=== PATIENT | male | born 1970 | race Caucasian/White ===

== ENCOUNTER 2020-03-14 18:36 | Inpatient (IN) | payer OTHER ==
[2020-03-14] MEDS ORDERED: MAGNESIUM CITRATE 300 ML BOTTLE PO PRN (21:07)
[2020-03-14] MEDS ORDERED: ACETAMINOPHEN 325 MG TABLET (FP) PO PRN (21:07)
[2020-03-14] MEDS ORDERED: IBUPROFEN 400 MG TABLET (FP) PO PRN (21:07)
[2020-03-14] MEDS ORDERED: P-EPHED 60MG/TRIPROLIDI 2.5MG TABLET PO PRN (21:07)
[2020-03-14] MEDS ORDERED: NICOTINE POLACRILEX 2 MG GUM BC PRN (21:07)
[2020-03-14] MEDS ORDERED: LOPERAMIDE HCL 2 MG CAPSULE PO PRN (21:07)
[2020-03-14] MEDS ORDERED: guaiFENesin 200 MG/10 ML 10 ML UNIT-DOSE CUPS PO PRN (21:07)
[2020-03-14] MEDS ORDERED: MAGNESIUM HYDROX 2400MG/30ML ORAL SUSPENSION 30 ML CUP PO PRN (21:07)
[2020-03-14 21:46] VITALS: BMI 19.8
[2020-03-14] MEDS ORDERED: MELATONIN 5 MG TABLETS PO SCH (22:00)
[2020-03-14] MEDS ORDERED: TUBERCULIN PPD 5 TU/0.1ML VIAL ID ONE ×2 (22:09→22:31)
[2020-03-14] MEDS: MELATONIN 5 MG TABLETS PO SCH (22:16)
[2020-03-14] MEDS: THIAMINE HCL 100 MG TABLET (FP) PO SCH (22:16)
[2020-03-15] MEDS: NICOTINE 14 MG/24 HOURS TOPICAL PATCH TD SCH (09:46)
[2020-03-15] MEDS: PRENATAL VITAMINS W/ FOLIC ACID TABLET (FP) PO SCH (09:46)
[2020-03-15] MEDS: hydrOXYzine PAMOATE 25 MG CAPSULE (FP) PO PRN ×2 (09:52→21:22)
[2020-03-15] MEDS: cloNIDine HCL 0.1 MG TABLET PO PRN (09:52)
[2020-03-15] MEDS: IBUPROFEN 400 MG TABLET (FP) PO PRN (09:54)
[2020-03-15 13:31] LABS: POTASSIUM 4.1 mmol/L (3.5-5.1)
[2020-03-15 13:32] LABS: CALCIUM 8.7 mg/dL (8.5-10.1)
[2020-03-15 13:33] LABS: ALBUMIN 3.7 g/dl (3.4-5.0); BLOOD UREA NITROGEN 22.1 mg/dL (7-18); HEMATOCRIT 42.8 % (35.4-49); HEMOGLOBIN 14.4 GM/dL (11.7-16.9); MCH 30.8 pg (25.7-33.7); MCHC 33.6 g/dl (32.0-35.9); MEAN CELL VOLUME 91.7 fl (80-96); PLATELET COUNT 338 K/MM3 (134-434); RBC 4.67 M/mm3 (4.00-5.60); RDW 14.2 % (11.9-15.9); WHITE BLOOD COUNT 9.7 K/mm3 (4.0-10.0)
[2020-03-15 13:37] LABS: BILIRUBIN,TOTAL 0.6 mg/dL (0.2-1)
[2020-03-15 13:38] LABS: TOT PROT 6.4 g/dl (6.4-8.2)
[2020-03-15] MEDS: MELATONIN 5 MG TABLETS PO SCH (21:22)
[2020-03-15] MEDS: THIAMINE HCL 100 MG TABLET (FP) PO SCH (21:22)
[2020-03-15] MEDS: CYCLOBENZAPRINE HCL 10 MG TABLET (FP) PO PRN (21:23)
[2020-03-16] MEDS: PRENATAL VITAMINS W/ FOLIC ACID TABLET (FP) PO SCH (09:35)
[2020-03-16] MEDS: NICOTINE 14 MG/24 HOURS TOPICAL PATCH TD SCH (09:35)
[2020-03-16] MEDS: hydrOXYzine PAMOATE 25 MG CAPSULE (FP) PO PRN ×2 (09:36→21:32)
[2020-03-16] MEDS: IBUPROFEN 400 MG TABLET (FP) PO PRN (09:36)
[2020-03-16 18:36] LABS: PH,URINE 5.5 (5.0-8.0); URINE APPEARANCE CLEAR; URINE BILIRUBIN NEGATIVE (NEGATIVE); URINE COLOR YELLOW; URINE GLUCOSE (UA) NEGATIVE (NEGATIVE); URINE KETONE TRACE (NEGATIVE); URINE LEUK ESTERASE NEGATIVE (NEGATIVE); URINE NITRITE NEGATIVE (NEGATIVE); URINE PROTEIN NEGATIVE (NEGATIVE); URINE UROBILINOGEN 0.2 mg/dL (0.2-1.0)
[2020-03-16] MEDS: cloNIDine HCL 0.1 MG TABLET PO PRN (21:32)
[2020-03-16] MEDS: THIAMINE HCL 100 MG TABLET (FP) PO SCH (21:32)
[2020-03-16] MEDS: MELATONIN 5 MG TABLETS PO SCH (21:32)
[2020-03-16] MEDS: CYCLOBENZAPRINE HCL 10 MG TABLET (FP) PO PRN (21:33)
[2020-03-17] MEDS: hydrOXYzine PAMOATE 25 MG CAPSULE (FP) PO PRN (09:42)
[2020-03-17] MEDS: NICOTINE 14 MG/24 HOURS TOPICAL PATCH TD SCH (09:42)
[2020-03-17] MEDS: PRENATAL VITAMINS W/ FOLIC ACID TABLET (FP) PO SCH (09:42)
[2020-03-17] MEDS: CYCLOBENZAPRINE HCL 10 MG TABLET (FP) PO PRN (09:43)
[2020-03-17] MEDS ORDERED: diphenhydrAMINE HCL 25 MG CAPSULE (FP) PO ONE (21:16)
[2020-03-17] MEDS: THIAMINE HCL 100 MG TABLET (FP) PO SCH (21:23)
[2020-03-17] MEDS: IBUPROFEN 400 MG TABLET (FP) PO PRN (21:23)
[2020-03-17] MEDS: cloNIDine HCL 0.1 MG TABLET PO PRN (21:23)
[2020-03-17] MEDS: SULFAMETHOXAZOLE/TRIMETHOPRIM 800MG/160MG D.S. TABLET PO SCH (21:24)
[2020-03-17] MEDS: MELATONIN 5 MG TABLETS PO SCH (21:24)
[2020-03-17] MEDS: HYDROCORTISONE 0.5% TOPICAL CREAM 30 GM TUBE TP PRN (22:34)
[2020-03-18] MEDS: NICOTINE 14 MG/24 HOURS TOPICAL PATCH TD SCH (09:38)
[2020-03-18] MEDS: SULFAMETHOXAZOLE/TRIMETHOPRIM 800MG/160MG D.S. TABLET PO SCH ×2 (09:38→21:20)
[2020-03-18] MEDS: PRENATAL VITAMINS W/ FOLIC ACID TABLET (FP) PO SCH (09:38)
[2020-03-18] MEDS: hydrOXYzine PAMOATE 25 MG CAPSULE (FP) PO PRN (09:39)
[2020-03-18] MEDS: ARIPiprazole 2 MG TABLET PO SCH (10:30)
[2020-03-18] MEDS: THIAMINE HCL 100 MG TABLET (FP) PO SCH (21:20)
[2020-03-18] MEDS: MELATONIN 5 MG TABLETS PO SCH (21:20)
[2020-03-18] MEDS: MIRTAZAPINE 15 MG TABLET (FP) PO SCH (21:22)
[2020-03-19] MEDS: ARIPiprazole 2 MG TABLET PO SCH (09:46)
[2020-03-19] MEDS: NICOTINE 14 MG/24 HOURS TOPICAL PATCH TD SCH (09:46)
[2020-03-19] MEDS: SULFAMETHOXAZOLE/TRIMETHOPRIM 800MG/160MG D.S. TABLET PO SCH ×2 (09:46→21:26)
[2020-03-19] MEDS: PRENATAL VITAMINS W/ FOLIC ACID TABLET (FP) PO SCH (09:47)
[2020-03-19] MEDS: MAG HYDROX/AL HYDROX/SIMETH 30 ML UNIT-DOSE CUP PO PRN (19:00)
[2020-03-19] MEDS: CYCLOBENZAPRINE HCL 10 MG TABLET (FP) PO PRN (21:25)
[2020-03-19] MEDS: THIAMINE HCL 100 MG TABLET (FP) PO SCH (21:25)
[2020-03-19] MEDS: MIRTAZAPINE 15 MG TABLET (FP) PO SCH (21:25)
[2020-03-19] MEDS: hydrOXYzine PAMOATE 25 MG CAPSULE (FP) PO PRN (21:25)
[2020-03-19] MEDS: ACETAMINOPHEN 325 MG TABLET (FP) PO PRN (21:26)
[2020-03-19] MEDS: MELATONIN 5 MG TABLETS PO SCH (21:26)
[2020-03-20] MEDS: NICOTINE 14 MG/24 HOURS TOPICAL PATCH TD SCH (09:50)
[2020-03-20] MEDS: PRENATAL VITAMINS W/ FOLIC ACID TABLET (FP) PO SCH (09:50)
[2020-03-20] MEDS: SULFAMETHOXAZOLE/TRIMETHOPRIM 800MG/160MG D.S. TABLET PO SCH ×2 (09:50→21:33)
[2020-03-20] MEDS: ARIPiprazole 2 MG TABLET PO SCH (09:50)
[2020-03-20] MEDS: HYDROCORTISONE 0.5% TOPICAL CREAM 30 GM TUBE TP PRN (09:51)
[2020-03-20] MEDS ORDERED: METHOCARBAMOL 500 MG TABLET PO PRN (12:08)
[2020-03-20] MEDS ORDERED: ONDANSETRON *ODT* 4 MG TABLET SL PRN (12:09)
[2020-03-20] MEDS ORDERED: MASKS NR ONE (17:00)
[2020-03-20] MEDS: MIRTAZAPINE 15 MG TABLET (FP) PO SCH (21:33)
[2020-03-20] MEDS: CYCLOBENZAPRINE HCL 10 MG TABLET (FP) PO PRN (21:33)
[2020-03-20] MEDS: hydrOXYzine PAMOATE 25 MG CAPSULE (FP) PO PRN (21:33)
[2020-03-20] MEDS: IBUPROFEN 400 MG TABLET (FP) PO PRN (21:33)
[2020-03-20] MEDS: THIAMINE HCL 100 MG TABLET (FP) PO SCH (21:33)
[2020-03-20] MEDS: MELATONIN 5 MG TABLETS PO SCH (21:33)
[2020-03-21] MEDS: SULFAMETHOXAZOLE/TRIMETHOPRIM 800MG/160MG D.S. TABLET PO SCH ×2 (09:51→21:11)
[2020-03-21] MEDS: ARIPiprazole 2 MG TABLET PO SCH (09:51)
[2020-03-21] MEDS: NICOTINE 14 MG/24 HOURS TOPICAL PATCH TD SCH (09:52)
[2020-03-21] MEDS: HYDROCORTISONE 0.5% TOPICAL CREAM 30 GM TUBE TP PRN (09:52)
[2020-03-21] MEDS: PRENATAL VITAMINS W/ FOLIC ACID TABLET (FP) PO SCH (09:52)
[2020-03-21] MEDS: hydrOXYzine PAMOATE 25 MG CAPSULE (FP) PO PRN (21:11)
[2020-03-21] MEDS: MIRTAZAPINE 15 MG TABLET (FP) PO SCH (21:11)
[2020-03-21] MEDS: CYCLOBENZAPRINE HCL 10 MG TABLET (FP) PO PRN (21:11)
[2020-03-21] MEDS: THIAMINE HCL 100 MG TABLET (FP) PO SCH (21:11)
[2020-03-21] MEDS: MELATONIN 5 MG TABLETS PO SCH (21:11)
[2020-03-22] MEDS: PRENATAL VITAMINS W/ FOLIC ACID TABLET (FP) PO SCH (09:35)
[2020-03-22] MEDS: SULFAMETHOXAZOLE/TRIMETHOPRIM 800MG/160MG D.S. TABLET PO SCH ×2 (09:35→21:13)
[2020-03-22] MEDS: ARIPiprazole 2 MG TABLET PO SCH (09:36)
[2020-03-22] MEDS: NICOTINE 14 MG/24 HOURS TOPICAL PATCH TD SCH (09:36)
[2020-03-22] MEDS: MIRTAZAPINE 15 MG TABLET (FP) PO SCH (21:13)
[2020-03-22] MEDS: THIAMINE HCL 100 MG TABLET (FP) PO SCH (21:13)
[2020-03-22] MEDS: MELATONIN 5 MG TABLETS PO SCH (21:14)
[2020-03-23] MEDS: ARIPiprazole 2 MG TABLET PO SCH (09:47)
[2020-03-23] MEDS: SULFAMETHOXAZOLE/TRIMETHOPRIM 800MG/160MG D.S. TABLET PO SCH ×2 (09:47→22:12)
[2020-03-23] MEDS: PRENATAL VITAMINS W/ FOLIC ACID TABLET (FP) PO SCH (09:47)
[2020-03-23] MEDS: NICOTINE 14 MG/24 HOURS TOPICAL PATCH TD SCH (09:47)
[2020-03-23] MEDS: MIRTAZAPINE 15 MG TABLET (FP) PO SCH (22:12)
[2020-03-23] MEDS: THIAMINE HCL 100 MG TABLET (FP) PO SCH (22:12)
[2020-03-23] MEDS: MELATONIN 5 MG TABLETS PO SCH (22:12)
[2020-03-24] MEDS: ARIPiprazole 2 MG TABLET PO SCH (09:39)
[2020-03-24] MEDS: NICOTINE 14 MG/24 HOURS TOPICAL PATCH TD SCH (09:39)
[2020-03-24] MEDS: PRENATAL VITAMINS W/ FOLIC ACID TABLET (FP) PO SCH (09:39)
[2020-03-24] MEDS: SULFAMETHOXAZOLE/TRIMETHOPRIM 800MG/160MG D.S. TABLET PO SCH (09:39)
[2020-03-24] MEDS: MIRTAZAPINE 15 MG TABLET (FP) PO SCH (21:13)
[2020-03-24] MEDS: THIAMINE HCL 100 MG TABLET (FP) PO SCH (21:13)
[2020-03-24] MEDS: MELATONIN 5 MG TABLETS PO SCH (21:13)
[2020-03-24] MEDS: MAG HYDROX/AL HYDROX/SIMETH 30 ML UNIT-DOSE CUP PO PRN (21:15)
[2020-03-25] MEDS: PRENATAL VITAMINS W/ FOLIC ACID TABLET (FP) PO SCH (09:43)
[2020-03-25] MEDS: NICOTINE 14 MG/24 HOURS TOPICAL PATCH TD SCH (09:43)
[2020-03-25] MEDS: ARIPiprazole 2 MG TABLET PO SCH (09:43)
[2020-03-25] MEDS: PANTOPRAZOLE 40 MG TABLET PO SCH (12:30)
[2020-03-25] MEDS: hydrOXYzine PAMOATE 25 MG CAPSULE (FP) PO PRN (21:43)
[2020-03-25] MEDS: CYCLOBENZAPRINE HCL 10 MG TABLET (FP) PO PRN (21:43)
[2020-03-25] MEDS: THIAMINE HCL 100 MG TABLET (FP) PO SCH (21:43)
[2020-03-25] MEDS: MIRTAZAPINE 15 MG TABLET (FP) PO SCH (21:44)
[2020-03-25] MEDS: MELATONIN 5 MG TABLETS PO SCH (21:44)
[2020-03-26] MEDS: PANTOPRAZOLE 40 MG TABLET PO SCH (09:24)
[2020-03-26] MEDS: PRENATAL VITAMINS W/ FOLIC ACID TABLET (FP) PO SCH (09:24)
[2020-03-26] MEDS: NICOTINE 14 MG/24 HOURS TOPICAL PATCH TD SCH (09:25)
[2020-03-26] MEDS: ARIPiprazole 2 MG TABLET PO SCH (09:25)
[2020-03-26] MEDS: THIAMINE HCL 100 MG TABLET (FP) PO SCH (21:11)
[2020-03-26] MEDS: MIRTAZAPINE 15 MG TABLET (FP) PO SCH (21:11)
[2020-03-26] MEDS: MELATONIN 5 MG TABLETS PO SCH (21:11)
[2020-03-26] MEDS: hydrOXYzine PAMOATE 25 MG CAPSULE (FP) PO PRN (21:11)
[2020-03-26] MEDS: CYCLOBENZAPRINE HCL 10 MG TABLET (FP) PO PRN (21:12)
[2020-03-27] MEDS: PRENATAL VITAMINS W/ FOLIC ACID TABLET (FP) PO SCH (09:37)
[2020-03-27] MEDS: PANTOPRAZOLE 40 MG TABLET PO SCH (09:37)
[2020-03-27] MEDS: NICOTINE 14 MG/24 HOURS TOPICAL PATCH TD SCH (09:37)
[2020-03-27] MEDS: ARIPiprazole 2 MG TABLET PO SCH (09:37)
[2020-03-27] MEDS: MIRTAZAPINE 15 MG TABLET (FP) PO SCH (21:38)
[2020-03-27] MEDS: MELATONIN 5 MG TABLETS PO SCH (21:38)
[2020-03-27] MEDS: hydrOXYzine PAMOATE 25 MG CAPSULE (FP) PO PRN (21:38)
[2020-03-27] MEDS: THIAMINE HCL 100 MG TABLET (FP) PO SCH (21:38)
[2020-03-27] MEDS: CYCLOBENZAPRINE HCL 10 MG TABLET (FP) PO PRN (21:38)
[2020-03-28] MEDS: MAG HYDROX/AL HYDROX/SIMETH 30 ML UNIT-DOSE CUP PO PRN (08:49)
[2020-03-28] MEDS: PANTOPRAZOLE 40 MG TABLET PO SCH (09:51)
[2020-03-28] MEDS: PRENATAL VITAMINS W/ FOLIC ACID TABLET (FP) PO SCH (09:51)
[2020-03-28] MEDS: ARIPiprazole 2 MG TABLET PO SCH (09:51)
[2020-03-28] MEDS: NICOTINE 14 MG/24 HOURS TOPICAL PATCH TD SCH (09:52)
[2020-03-28] MEDS: THIAMINE HCL 100 MG TABLET (FP) PO SCH (21:07)
[2020-03-28] MEDS: MELATONIN 5 MG TABLETS PO SCH (21:07)
[2020-03-28] MEDS: MIRTAZAPINE 15 MG TABLET (FP) PO SCH (21:08)
[2020-03-29] MEDS: PRENATAL VITAMINS W/ FOLIC ACID TABLET (FP) PO SCH (09:14)
[2020-03-29] MEDS: PANTOPRAZOLE 40 MG TABLET PO SCH (09:15)
[2020-03-29] MEDS: NICOTINE 14 MG/24 HOURS TOPICAL PATCH TD SCH (09:15)
[2020-03-29] MEDS: ACETAMINOPHEN 325 MG TABLET (FP) PO PRN (09:15)
[2020-03-29] MEDS: ARIPiprazole 2 MG TABLET PO SCH (09:15)
[2020-03-29] MEDS: MIRTAZAPINE 15 MG TABLET (FP) PO SCH (21:50)
[2020-03-29] MEDS: MELATONIN 5 MG TABLETS PO SCH (21:50)
[2020-03-29] MEDS: CYCLOBENZAPRINE HCL 10 MG TABLET (FP) PO PRN (21:50)
[2020-03-29] MEDS: THIAMINE HCL 100 MG TABLET (FP) PO SCH (21:50)
[2020-03-29] MEDS: hydrOXYzine PAMOATE 25 MG CAPSULE (FP) PO PRN (21:50)
[2020-03-30] MEDS: PRENATAL VITAMINS W/ FOLIC ACID TABLET (FP) PO SCH (09:14)
[2020-03-30] MEDS: ARIPiprazole 2 MG TABLET PO SCH (09:14)
[2020-03-30] MEDS: hydrOXYzine PAMOATE 25 MG CAPSULE (FP) PO PRN ×2 (09:15→21:56)
[2020-03-30] MEDS: PANTOPRAZOLE 40 MG TABLET PO SCH (09:15)
[2020-03-30] MEDS: NICOTINE 14 MG/24 HOURS TOPICAL PATCH TD SCH (09:16)
[2020-03-30] MEDS ORDERED: MASKS NR ONE (17:41)
[2020-03-30] MEDS: MELATONIN 5 MG TABLETS PO SCH (21:55)
[2020-03-30] MEDS: THIAMINE HCL 100 MG TABLET (FP) PO SCH (21:56)
[2020-03-30] MEDS: MIRTAZAPINE 15 MG TABLET (FP) PO SCH (21:56)
[2020-03-31 06:51] VITALS: BP 108/72; PULSE 76; TEMP 98
== END 2020-03-31 09:00 | disposition other institution (70) | DRG 772 ==
LOC: YASAS 18:36 → Y5N 21:38
PROVIDERS: ADMIT Allergy & Immunology; ATTEND Allergy & Immunology
PROC: HZ42ZZZ Group Counseling for Substance Abuse Treatment, Cognitive-Behavioral (ICD-10-PCS; principal; 2020-03-14)
DX: F11.20 Opioid dependence, uncomplicated (principal); F10.20 Alcohol dependence, uncomplicated; F14.20 Cocaine dependence, uncomplicated; F17.210 Nicotine dependence, cigarettes, uncomplicated; F19.282 Other psychoactive substance dependence with psychoactive substance-induced sleep disorder; F19.24 Other psychoactive substance dependence with psychoactive substance-induced mood disorder; F31.9 Bipolar disorder, unspecified; F43.10 Post-traumatic stress disorder, unspecified; F90.9 Attention-deficit hyperactivity disorder, unspecified type; K21.9 Gastro-esophageal reflux disease without esophagitis; L29.8 Other pruritus; L53.9 Erythematous condition, unspecified; Z87.19 Personal history of other diseases of the digestive system; Z86.19 Personal history of other infectious and parasitic diseases; Z98.890 Other specified postprocedural states; Z56.0 Unemployment, unspecified; Z59.0 Homelessness
CPT/HCPCS: 36415; 80053; 81003; 85027; 86780; 93005; 93010; C9803; J0735; U0003